=== PATIENT | female | born 1930 | race Caucasian/White ===

== ENCOUNTER 2017-01-20 07:37 | Day surgery (SDC) | payer OTHER ==
[~2017-01-20] VITALS: Ht 172.7 cm; Wt 77.1 kg
[~2017-01-20 07:37] MED LIST: ACID CONTROL150 MG PO; ASPIR 8181 M1 PO; CALCITONIN-SAL3.8 ML ALT NARES; PERCOCET 5/31 TABLET PO; SINEMET CR 25-1 EACH PO; TUMS500 MG PO; VITAMIN D2000 UNIT PO
[2017-01-20 08:19] VITALS: BP 152/70
[2017-01-20 11:35] VITALS: BP 158/74
[2017-01-20 12:23] VITALS: BP 131/61
== END 2017-01-20 12:40 | disposition home or self-care (01) ==
LOC: SDC 07:37
DX: S32.010A Wedge compression fracture of first lumbar vertebra, initial encounter for closed fracture (principal); M81.0 Age-related osteoporosis without current pathological fracture; G20 Parkinson's disease; Z87.891 Personal history of nicotine dependence; Z79.82 Long term (current) use of aspirin; Z88.2 Allergy status to sulfonamides; Z85.3 Personal history of malignant neoplasm of breast
CPT/HCPCS: J0330; J0690; J1100; J2405; J3010; Q0175